=== PATIENT | female | born 1960 | race Caucasian/White ===

== ENCOUNTER → 2016-09-18 | Outpatient (CLI) | payer BC ==
[~2016-09-18] MED LIST: CHOL100010 PO; CONJ.6255 PO; FERR324T PO; FISHOIL PO; LEVO100T PO; LEVO125T4 PO; LEVO200T PO; LITH1TAB PO; LITH1TAB10 PO; MULT-672 PO; MULT60CA PO; MULTTAB58 PO; OMEG10007 PO; PROP60CA5 PO; [UNRECOGNIZED DRUG - OTHER] IM
== END | disposition home or self-care (01) ==
LOC: C.LAB 15:25
PROVIDERS: ATTEND Obstetrics & Gynecology
DX: N91.2 Amenorrhea, unspecified (principal)

== ENCOUNTER → 2016-09-19 | Outpatient (CLI) | payer BC | END | disposition home or self-care (01) | LOC: C.PAPS 16:34 | PROVIDERS: ATTEND Obstetrics & Gynecology | DX: Z01.419 Encounter for gynecological examination (general) (routine) without abnormal findings (principal) ==

== ENCOUNTER → 2016-12-28 | Day surgery (SDC) | payer BC ==
[2016-11-06 10:33] VITALS: Ht 177.8 cm; Wt 95.9 kg
--- NOTE | 2016-12-25 12:30 | HISTORY & PHYSICAL EXAMINATION ---
DATE OF ADMISSION: 12/28/2016 CHIEF COMPLAINT: Vaginal bleeding, abnormal transvaginal ultrasound. HISTORY OF PRESENT ILLNESS: The patient is a 56-year-old 3, para 2, 1 spontaneous AB. 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 She also has a nonfunctioning left kidney. She had a tubal ligation in 1994 for control and she had a prior D\T\C 2011 for heavy vaginal bleeding and anemia. She went for over a year without a period. She started bleeding again. Transvaginal ultrasound on 10/27/2016 showed an endometrial stripe at 2.8 cm with irregular texture. She also had 2 identifiable fibroids. Presently being scheduled for an outpatient D\T\C. ALLERGIES: ALLERGIC TO SULFUR. PAST MEDICAL HISTORY: Bipolar disorder, nonfunctioning left kidney. PAST SURGICAL HISTORY: Previous tubal ligation, previous outpatient D\T\C. SOCIAL HISTORY: No smoking. No alcohol intake. Works at home. FAMILY HISTORY: Mom at age 79, complications of dementia, Parkinson's and possible bipolar disorder. Dad at 82 of complications treatment for arthritis. One brother and 2 sisters in good health. REVIEW OF SYSTEMS: HEAD: No symptoms of frequent or severe headaches. EYES: No symptoms of blurred vision, double vision. EARS: No symptoms of frequent ear infections, difficulty hearing. NOSE: No symptoms of frequent nosebleeds, difficulty breathing through her nose. THROAT: No symptoms of frequent or severe sore throat, difficulty swallowing. RESPIRATORY SYSTEM: No history of asthma, chest pain, shortness of breath. PHYSICAL EXAMINATION: GENERAL: Well-developed, well-nourished 56-year-old white female, alert, oriented x3 and cooperative in no acute distress, appears stated age. EYES: Conjunctivae are pink. Sclerae white. No evidence of jaundice. EARS: Had normal light reflex bilaterally. NOSE: Had normal mucosa. Septum is midline. There were no polyps. THROAT: No erythema or evidence of infection. Teeth are in good state of repair. HEAD: Was normocephalic, normal distribution of hair. NECK: Supple. Trachea midline. Thyroid is not enlarged. No adenopathy appreciated. Both carotids are of good intensity. CHEST: Clear to auscultation and percussion. No wheezes, rales or rhonchi appreciated. HEART: Regular rhythm. S1 and S2 are normal. BREAST EXAMINATION: Normal. ABDOMEN: Soft and nontender. PELVIC EXAMINATION: Revealed normal-appearing cervix. Uterus is about 11-12 week size and irregular. No adnexal masses appreciated. MUSCULOSKELETAL EXAMINATION: Revealed no calf tenderness. IMPRESSIONS OF THIS CASE: Status post D\T\C, status post tubal ligation and nonfunctioning left kidney, fibroids and postmenopausal bleeding.
[2016-12-25 12:40] LABS: COMPLETE YES; EOS % 0.9 %; IG% 0.1 %; LYMPH % 22.4 %; LYMPH ABS # 1.51 K/uL (1.2-3.4); MEAN CELL VOLUME 90.7 fL (80-100); MEAN CORPUSCULAR HEMOGLOBIN 29.5 pg (25-34); MEAN CORPUSCULAR HGB CONC 32.6 g/dl (32-36); MEAN PLATELET VOLUME 9.8 fL (7.4-10.4); MONO % 9.2 %; NEUT % 67.4 %; PLATELET COUNT 337 K/uL (130-400); RED BLOOD COUNT 4.74 M/uL (4.2-5.4); WHITE BLOOD COUNT 6.73 K/uL (4.8-10.8)
[2016-12-25 13:07] LABS: PREG INTERNAL NEGATIVE QC NEG CLEAR BACKGROUND; PREG INTERNAL POSITIVE QC POS CONTROL LINE
[~2016-12-28] VITALS: Ht 177.8 cm; Wt 95.9 kg
[~2016-12-28] MED LIST changes: +ATROPINE SULFATE 0.1 MG/ML 5ML SYR IV PRN; -CONJ.6255 PO; +DEXAMETHASONE SOD INJ 4 MG/ML VIAL ONE; +EpHEDrine SULFATE INJ 50 MG/ML AMP IV PRN; +FENTANYL CITRATE INJ 50 MCG/1 ML 2 ML VIAL IV PRN; +FENTANYL CITRATE INJ 50 MCG/1 ML 2 ML VIAL ONE; -FERR324T PO; -FISHOIL PO; +FLUMAZENIL 0.1 MG/1 ML 10 ML VIAL IV PRN; +HYDROCODONE/ACETAMOPHEN 5/325MG TAB PO PRN; +HYDROmorphone INJ 2 MG/ML SYR/VIAL IV PRN; +IBUPROFEN 600 MG TAB PO PRN; +KETOROLAC TROMETHAMINE 30 MG/ML VIAL IV. PRN; +LABETALOL HCL IV 5 MG/ML 20ML IV PRN; +LACTATED RINGER'S 1000ML 1,000 ML IV SCH; -LEVO100T PO; -LEVO125T4 PO; +LEVO125T5 PO; -LEVO200T PO; +LIDOCAINE HCL 2% 2 ML VIAL (20MG/ML) ONE; +MEPERIDINE HCL 25 MG/ML CARP IV PRN; +MIDAZOLAM HCL 1 MG/ML 2ML VIAL ONE; -MULT60CA PO; -MULTTAB58 PO; +NALOXONE HCL 0.4 MG/1 ML VIAL/CARP IV PRN; +ONDANSETRON INJ 2 MG/ML 2 ML VIAL IV PRN; +ONDANSETRON INJ 2 MG/ML 2 ML VIAL ONE; +OXYCODONE/ACETAMINOPHEN 5-325 TAB PO PRN; +PHENYLEPHRINE 100MCG/ML 5ML SYR IV PRN; +PROPOFOL IV EMULSION 10 MG/ML 20 ML VIAL IV ONE; +SODIUM CHLORIDE 0.9% 1000ML 1,000 ML IV SCH; -[UNRECOGNIZED DRUG - OTHER] IM
--- NOTE | 2016-12-28 07:39 | History & Physical Bridge Note ---
H&P Re-Evaluation Bridge Note: I have examined the patient, reviewed the History & Physical and in the interval since the performance of the History & Physical I have noted the following changes of clinical significance: No changes noted
--- NOTE | 2016-12-28 08:18 | [facility] Post Operative Brief Note ---
Immediate Operative Summary Operative Date December 28, 2016. Pre-Operative Diagnosis Post-Menopausal Bleeding Post-Operative Diagnosis same Procedure(s) Performed Dilatation And Curettage Surgeon Dr. Melita Galdamez Stationary Plant Operators Surgeon(s) 0 Estimated Blood Loss 15cc Findings UTERUS SOUNDED TO 8 CM FIBROID UTERUS Specimens A. Endometrial Curettings Complication(s) None Disposition Recovery Room / PACU
--- NOTE | 2016-12-28 08:21 | Discharge Instructions-SurgCtr ---
Discharge Instructions Date of Service December 28, 2016. Visit Reason for Visit: Post Menopausal Bleeding Discharge Discharge Diagnosis / Problem: POST MENOPAUSAL BLEEDING Discharge Goals Goal(s): Improve function, Learn about illness Activity Recommendations Activity Limitations: as noted below Anesthesia . Post Anesthesia Instructions: If you have had General Anesthesia or IV Sedation: * Do not drive today. * Resume driving when surgeon permits. * Do not make important decisions or sign legal documents today. * Call surgeon for: 1. Temperature elevations greater than 101 degrees F. 2. Uncontrollable pain. 3. Excessive bleeding. 4. Persistent nausea and vomiting. 5. Medication intolerance (nausea, vomiting or rash). * For nausea and vomiting use only clear liquids such as: tea, soda, bouillon until nausea subsides, then gradually increase diet as tolerated. * If you have any concerns or questions, call your surgeon's office. If physician is unavailable and it is an emergency, call 911 or go to the nearest emergency room. . Instructions / Follow-Up Instructions / Follow-Up ACTIVITY RECOMMENDATIONS: * Avoid tampons, douching, hot tubs, pools, and intercourse until bleeding has stopped. * May shower as usual. * No strenuous activity for 24-48 hours. After 24-48 hours, you may do anything you feel like doing (driving and sports are okay). SPECIAL CARE INSTRUCTIONS: Special Diet: * Mild nausea may occur in the immediate post-operative period. * Take clear liquids such as tea, cola or bouillon until all nausea has subsided; you may then resume your normal diet. Special Care: * Light bleeding and vaginal spotting can last from a few days to 3-4 weeks. Call your doctor if bleeding becomes heavier than the heaviest part of your period. * Check your temperature twice a day for one week. If it goes above 100.4 degrees Fahrenheit (38.0 Celsius), notify your doctor. * Call your doctor's office for an appointment for 6 weeks after your surgery. FOLLOW-UP VISIT: Call your doctor's office for an appointment for 6 weeks after your surgery. Diet Recommendations Home Diet: resume previous diet Procedures Procedures Performed: Dilatation And Curettage Pending Studies Studies pending at discharge: no Medical Emergencies . Who to Call and When: Medical Emergencies: If at any time you feel your situation is an emergency, please call 911 immediately. . Non-Emergent Contact Non-Emergency issues call your: Education And Training Manager Call Non-Emergent contact if: temperature is above 100.5 . . "Provider Documentation" section prepared by Huang Galdamez. .
--- NOTE | 2016-12-28 08:51 | OPERATIVE REPORT ---
DATE OF OPERATION: 12/28/2016 INDICATIONS FOR SURGERY: Postmenopausal bleeding. PREOPERATIVE DIAGNOSIS: Fibroid uterus, postmenopausal bleeding. POSTOPERATIVE DIAGNOSIS: Same. Uterus sounded to 8 cm. PROCEDURE: Dilatation cervix, sharp curettage of the endometrial cavity. SURGEON: Dr. Galdamez. ESTIMATED BLOOD LOSS: 15 mL. ANESTHESIA: General. OPERATIVE FINDINGS AND PROCEDURE: The patient was brought to the OR table, correctly identified by armband and conversation. General anesthesia was administered. Soler catheter was inserted in bladder and the bladder was emptied. Careful pelvic exam under anesthesia revealed an enlarged fibroid uterus, no adnexal masses appreciated. Weighted speculum was placed in the posterior vagina. Anterior lip of the cervix grasped with single tooth tenaculum at 12 o'clock. We had some trouble with cervical stenosis and had to use a stat to open up the cervical opening. I then sounded the uterus to 8 cm, I dilated the cervix then placed a sharp curette into the uterine cavity. All 4 quadrants of the uterus were thoroughly and systematically cureted. This was productive of a small amount of grossly normal appearing tissue. After thorough curettage of the endometrial cavity an ovum forceps was inserted in the uterine cavity, opened and closed several times. Additional small amount of tissue was obtained. Following this, the instruments were removed. There was some bleeding from this tenaculum sites at 12 o'clock and 2 ring forceps were used to compress the cervix and control the bleeding. Instruments eventually were removed. Hemostasis was good. The patient tolerated the procedure well and left the OR in good condition. I attest to the content of the Intraoperative Record and any orders documented therein. Any exceptio ns are noted below.
--- NOTE | 2016-12-28 08:54 | Anesthesia Progress Nt - [facility] ---
Anesthesia Post Op Note Date & Time December 28, 2016 at 08:54 Vital Signs Pain Intensity: 0 Vital Signs Past 12 Hours Date Time Temp Pulse Resp B/P Pulse Ox O2 Delivery O2 Flow Rate FiO2 12/28/16 08:15 37.2 68 12 109/76 98 Diffusion Mask 6 12/28/16 07:00 36.9 71 16 123/79 98 Room Air Notes Mental Status: alert / awake / arousable, participated in evaluation Pt Amnestic to Procedure: Yes Nausea / Vomiting: adequately controlled Pain: adequately controlled Airway Patency, RR, SpO2: stable & adequate BP & HR: stable & adequate Hydration State: stable & adequate Anesthetic Complications: no major complications apparent
[2016-12-28 09:17] VITALS: TEMP 36.4
[2016-12-28 09:44] VITALS: BP 123/82; PULSE 67; O2SAT 96
== END | disposition home or self-care (01) ==
LOC: X.SURG 06:44
PROVIDERS: ATTEND Obstetrics & Gynecology
DX: D25.9 Leiomyoma of uterus, unspecified (principal); N88.2 Stricture and stenosis of cervix uteri; F31.9 Bipolar disorder, unspecified; N28.9 Disorder of kidney and ureter, unspecified; Z98.51 Tubal ligation status; Z79.899 Other long term (current) drug therapy

== ENCOUNTER → 2017-09-25 | Outpatient (CLI) | payer BC ==
[~2017-09-25] MED LIST changes: -ATROPINE SULFATE 0.1 MG/ML 5ML SYR IV PRN; -DEXAMETHASONE SOD INJ 4 MG/ML VIAL ONE; -EpHEDrine SULFATE INJ 50 MG/ML AMP IV PRN; -FENTANYL CITRATE INJ 50 MCG/1 ML 2 ML VIAL IV PRN; -FENTANYL CITRATE INJ 50 MCG/1 ML 2 ML VIAL ONE; -FLUMAZENIL 0.1 MG/1 ML 10 ML VIAL IV PRN; -HYDROCODONE/ACETAMOPHEN 5/325MG TAB PO PRN; -HYDROmorphone INJ 2 MG/ML SYR/VIAL IV PRN; -IBUPROFEN 600 MG TAB PO PRN; -KETOROLAC TROMETHAMINE 30 MG/ML VIAL IV. PRN; -LABETALOL HCL IV 5 MG/ML 20ML IV PRN; -LACTATED RINGER'S 1000ML 1,000 ML IV SCH; -LIDOCAINE HCL 2% 2 ML VIAL (20MG/ML) ONE; -MEPERIDINE HCL 25 MG/ML CARP IV PRN; -MIDAZOLAM HCL 1 MG/ML 2ML VIAL ONE; -NALOXONE HCL 0.4 MG/1 ML VIAL/CARP IV PRN; -ONDANSETRON INJ 2 MG/ML 2 ML VIAL IV PRN; -ONDANSETRON INJ 2 MG/ML 2 ML VIAL ONE; -OXYCODONE/ACETAMINOPHEN 5-325 TAB PO PRN; -PHENYLEPHRINE 100MCG/ML 5ML SYR IV PRN; -PROPOFOL IV EMULSION 10 MG/ML 20 ML VIAL IV ONE; -SODIUM CHLORIDE 0.9% 1000ML 1,000 ML IV SCH
== END | disposition home or self-care (01) ==
LOC: C.PAPS 08:36
PROVIDERS: ATTEND Obstetrics & Gynecology
DX: Z01.419 Encounter for gynecological examination (general) (routine) without abnormal findings (principal)